=== PATIENT | female | born 1955 | race Caucasian/White ===

== ENCOUNTER → 2021-06-14 | Day surgery (SDC) | payer OTHER, MEDICARE ==
[~2021-06-14] VITALS: Ht 175.3 cm; Wt 90.7 kg
[~2021-06-14] MED LIST: DAILY VALUE1 EACH PO; LISINOPRIL PO; NORVASC5 MG PO; PRILOSEC20 MG PO; VENTOLIN HFA IN18 GM INH; VITAMIN D325 MC4 PO
== END | disposition home or self-care (01) ==
LOC: FAS 11:57
DX: R19.5 Other fecal abnormalities (principal); K51.40 Inflammatory polyps of colon without complications; K57.30 Diverticulosis of large intestine without perforation or abscess without bleeding; I10 Essential (primary) hypertension; K21.9 Gastro-esophageal reflux disease without esophagitis; J45.909 Unspecified asthma, uncomplicated; Z98.51 Tubal ligation status; Z72.89 Other problems related to lifestyle
CPT/HCPCS: J2704; J7120